=== PATIENT | male | born 1975 | race Caucasian/White ===

== ENCOUNTER 2023-07-31 18:45 | Emergency (ER) | payer OTHER ==
[~2023-07-31] VITALS: Ht 162.6 cm; Wt 80.7 kg
[2023-07-31 19:02] VITALS: BP 119/62; PULSE 77; RESP 16; TEMP 98; O2SAT 98
[2023-07-31] MEDS ORDERED: CIPR7.5D2 RIGHT EAR (21:00)
== END 2023-07-31 21:12 | disposition home or self-care (01) ==
LOC: MED 18:45
DX: H60.91 Unspecified otitis externa, right ear (principal); E78.5 Hyperlipidemia, unspecified; Z79.2 Long term (current) use of antibiotics
CPT/HCPCS: 99283